=== PATIENT | female | born 1995 | race Caucasian/White ===

== ENCOUNTER 2018-01-19 07:10 | Outpatient (CLI) | payer OTHER | END 2018-01-19 07:11 | disposition home or self-care (01) | LOC: LAB.F 07:10 | PROVIDERS: ATTEND Registered Nurse | DX: Z34.81 Encounter for supervision of other normal pregnancy, first trimester (principal) | CPT/HCPCS: 36415; 84702 ==

== ENCOUNTER 2018-01-25 07:59 | Emergency (ER) | payer OTHER ==
--- NOTE | 2018-01-25 08:22 | ED Physician Documentation ---
History of Present Illness - Stated complaint Stated Complaint: DIZZY/SOA 6 WKS PREG - Chief complaint Chief Complaint: Resp - History obtained from History obtained from: Patient - History of Present Illness Timing: Yesterday Pain level max: 0 Pain level now: 0 Improved by: lying down Worsened by: standing up - Additonal information Additional information: , approx 6 weeks EGA. Feels lightheaded with standing over the past 24 hours. No syncope. No abd pain, chest pain, dyspnea. [place] nauseated yesterday. Is on vitamins. no vaginal bleeding. Review of Systems Ten Systems: 10 systems reviewed and negative Constitutional: denies: Fever, Chills Ears: denies: Ear pain Nose: denies: Rhinorrhea / runny nose, Congestion Throat: denies: Sore throat Respiratory: denies: Cough GI: denies: Nausea, Vomiting, Diarrhea Skin: denies: Rash Musculoskeletal: denies: Neck pain, Back pain Neurologic: denies: Headache PD PAST MEDICAL HISTORY - Past Medical History Past Medical History: No - Past Surgical History Past Surgical History: No - Present Medications Home Medications: Ambulatory Orders Medication Instructions Recorded Confirmed Cephalexin [Keflex] 500 mg PO Q6H #20 capsule 01/25/18 Pnv No.122/Iron/Folic Acid 01/25/18 [ Multi Tablet] - Allergies Allergies/Adverse Reactions: Allergies Allergy/AdvReac Type Severity Reaction Status Date / Time No Known Drug Allergies Allergy Verified 01/25/18 08:11 - Living Situation Living Situation: reports: With family Living Arrangement: reports: At home - Social History Does the pt smoke?: No Does the pt drink ETOH?: No Does the pt have substance abuse?: No - Family History Family history: reports: Non contributory PD ED PE NORMAL - Vitals Vital signs reviewed: Yes - General General: Alert and oriented X 3, No acute distress - HEENT HEENT: PERRL, Ears normal, Other (dry lips) - Neck Neck: Supple, no meningeal sign - Cardiac Cardiac: RRR, Strong equal pulses - Respiratory Respiratory: No respiratory distress, Clear bilaterally - Abdomen Abdomen: Soft, Non tender, Non distended - Derm Derm: Warm and dry - Neuro Neuro: Alert and oriented X 3 - Psych Psych: Normal mood, Normal affect Results - Vitals Vitals: Vital Signs - 24 hr 01/25/18 01/25/1801/25/18 08:10 09:00 09:30 Temperature 36.7 C Heart Rate 88 70 70 Respiratory 14 16 16 Rate Blood Pressure 121/84 H 109/69 108/61 O2 Saturation 100 99 100 01/25/18 09:48 Temperature 36.6 C Heart Rate 74 Respiratory 16 Rate Blood Pressure 108/61 O2 Saturation 100 Oxygen O2 Source Room air - EKG (time done) 0842 Rate: Rate (enter#) (78) Rhythm: NSR Intervals: Normal DE QRS: Normal Ischemia: Normal ST segments - Labs Labs: Laboratory Tests 01/25/18 01/25/18 01/25/18 08:48 08:48 09:00 WBC 4.5 L RBC 4.92 Hgb 14.3 Hct 41.7 MCV 84.9 MCH 29.2 MCHC 34.4 RDW 13.3 Plt Count 162 MPV 6.5 L Neut # 3.4 Lymph # 0.7 L Douglas # 0.4 Eos # 0.0 Baso # 0.0 Absolute Nucleated RBC 0.00 Nucleated RBC % 0.0 Sodium 131 L Potassium 3.7 Chloride 101 Carbon Dioxide 22 Anion Gap 8.0 BUN 7 Creatinine 0.7 Estimated GFR (MDRD) 103 Glucose 97 Calcium 9.0 Phosphorus 2.2 L Magnesium 2.0 Total Bilirubin 0.4 AST 35 ALT 28 Alkaline Phosphatase 48 Total Protein 7.0 Albumin 3.9 Globulin 3.1 Albumin/Globulin Ratio 1.3 Lipase 22 Urine Color YELLOW Urine Clarity HAZY Urine pH 7.0 Ur Specific [place] <=1.005 Urine Protein NEGATIVE Urine Glucose (UA) NEGATIVE Urine Ketones TRACE Urine Occult Blood SMALL H Urine Nitrite NEGATIVE Urine Bilirubin NEGATIVE Urine Urobilinogen 0.2 (NORMAL) Ur Leukocyte Esterase MODERATE H Urine RBC 0-5 Urine WBC 6-10 H Ur Squamous Epith Cells FEW Squamous Urine Bacteria Few Ur Microscopic Review INDICATED Urine Culture Comments INDICATED PD MEDICAL DECISION MAKING - ED course Complexity details: reviewed results, re-evaluated patient, considered differential, d/w patient ED course: Bedside US with IUP, GS 5w6d, CRL 6w1d. Patient feels much better after IV fluids. Is no longer lightheaded or dizzy with standing. No tunnel vision. Appears to be consistent with dehydration. Also will treat for UTI as she has asymptomatic bacteriuria and is . Patient counseled regarding signs and symptoms for which I believe and urgent re -evaluation would be necessary. Patient with good understanding of and agreement to plan and is comfortable going home at this time This document was made in part using voice recognition software. While efforts are made to proofread this document, sound alike and grammatical errors may occur. Departure - Departure Disposition: 01 Home, Self Care Clinical Impression: Dehydration, Hyponatremia Qualifiers: Weeks of gestation: less than 8 weeks Qualified Code(s): Z3A.01 - Less than 8 weeks gestation of UTI (urinary tract infection) Qualifiers: Urinary tract infection type: acute cystitis Hematuria presence: without hematuria Qualified Code(s): N30.00 - Acute cystitis without hematuria Condition: Good Instructions: ED Dehydration, ED UTI Cystitis Female Follow-Up: Esther East PA [Primary Care Provider] - Within 1 week Prescriptions: Cephalexin [Keflex] 500 mg PO Q6H #20 capsule Comments: Drink plenty of fluids. Return if you worsen. Take all antibiotics until gone. Discharge Date/Time: 01/25/18 09:51
[2018-01-25] MEDS ORDERED: SODIUM CHLORIDE 0.9% 1,000 ML IV ONE (08:25)
[2018-01-25 09:06] LABS: BASOPHILS % (AUTO) 0.5 %; EOSINOPHILS % (AUTO) 0.3 %; HGB - HEMOGLOBIN 14.3 g/dL (12.0-16.0); LYMPHOCYTES # (AUTO) 0.7 10^3/uL (1.5-3.5); MEAN CORPUSCULAR HEMOGLOBIN 29.2 pg (27.0-31.0); MEAN CORPUSCULAR HGB CONC 34.4 g/dL (32.0-36.0); MEAN CORPUSCULAR VOLUME 84.9 fL (81.0-99.0); MEAN PLATELET VOLUME 6.5 fL (7.9-10.8); MONOCYTES # (AUTO) 0.4 10^3/uL (0.0-1.0); MONOCYTES % (AUTO) 8.3 %; NEUTROPHILS # (AUTO) 3.4 10^3/uL (1.5-6.6); NEUTROPHILS % (AUTO) 74.9 %; PLT - PLATELET COUNT 162 10^3/uL (130-450); RED BLOOD COUNT 4.92 10^6/uL (4.20-5.40); RED CELL DISTRIBUTION WIDTH 13.3 % (12.0-15.0); WHITE BLOOD COUNT 4.5 x10^3/uL (4.8-10.8)
[2018-01-25 09:07] LABS: BILIRUBIN,URINE NEGATIVE (NEGATIVE); GLUCOSE, URINE (UA) NEGATIVE (NEGATIVE); KETONES,URINE (UA) TRACE mg/dL (NEGATIVE); LEUKOCYTE ESTERASE, URINE MODERATE (NEGATIVE); NITRITE,URINE NEGATIVE (NEGATIVE); OCCULT BLOOD,URINE SMALL (NEGATIVE); PROTEIN,URINE NEGATIVE (NEGATIVE); UROBILINOGEN,URINE 0.2 (NORMAL) E.U./dL (NORMAL)
[2018-01-25 09:12] LABS: CLARITY,URINE HAZY (CLEAR)
[2018-01-25 09:18] LABS: ALBUMIN 3.9 g/dL (3.2-5.5); ALBUMIN/GLOBULIN RATIO 1.3 (1.0-2.2); BILIRUBIN,TOTAL 0.4 mg/dL (0.2-1.0); CREATININE 0.7 mg/dL (0.4-1.0); PHOSPHORUS 2.2 mg/dL (2.5-4.6)
[2018-01-25 09:20] LABS: BACTERIA,URINE Few /HPF (None Seen); RBC,URINE 0-5 /HPF (0-5); SQUAMOUS EPITHELIAL CELL,UR FEW Squamous (<= Few)
[2018-01-25 09:47] VITALS: BP 108/61
== END 2018-01-25 09:51 | disposition home or self-care (01) ==
LOC: ED 07:59
DX: O99.281 Endocrine, nutritional and metabolic diseases complicating pregnancy, first trimester (principal); E86.0 Dehydration; E87.1 Hypo-osmolality and hyponatremia; O23.11 Infections of bladder in pregnancy, first trimester; Z3A.01 Less than 8 weeks gestation of pregnancy
CPT/HCPCS: 36415; 80053; 81001; 81003; 83690; 83735; 84100; 85025; 87086; 93005; 96360; 99283; 99284

== ENCOUNTER 2018-02-22 07:19 | Outpatient (CLI) | payer MEDICAID ==
[2018-02-22 10:50] LABS: BILIRUBIN,URINE NEGATIVE (NEGATIVE); GLUCOSE, URINE (UA) NEGATIVE (NEGATIVE); KETONES,URINE (UA) NEGATIVE (NEGATIVE); LEUKOCYTE ESTERASE, URINE NEGATIVE (NEGATIVE); NITRITE,URINE NEGATIVE (NEGATIVE); OCCULT BLOOD,URINE NEGATIVE (NEGATIVE); PH,URINE 6.5 PH (5.0-7.5); PROTEIN,URINE NEGATIVE (NEGATIVE); UROBILINOGEN,URINE 0.2 (NORMAL) E.U./dL (NORMAL)
[2018-02-22 10:51] LABS: CLARITY,URINE CLEAR (CLEAR)
[2018-02-22 10:54] LABS: BASOPHILS % (AUTO) 0.4 %; EOSINOPHILS # (AUTO) 0.1 10^3/uL (0.0-0.7); EOSINOPHILS % (AUTO) 1.8 %; HGB - HEMOGLOBIN 13.1 g/dL (12.0-16.0); LYMPHOCYTES # (AUTO) 2.5 10^3/uL (1.5-3.5); LYMPHOCYTES % (AUTO) 30.5 %; MEAN CORPUSCULAR HGB CONC 33.5 g/dL (32.0-36.0); MEAN CORPUSCULAR VOLUME 86.4 fL (81.0-99.0); MEAN PLATELET VOLUME 7.1 fL (7.9-10.8); MONOCYTES # (AUTO) 0.6 10^3/uL (0.0-1.0); MONOCYTES % (AUTO) 7.1 %; NEUTROPHILS % (AUTO) 60.2 %; PLT - PLATELET COUNT 203 10^3/uL (130-450); RED BLOOD COUNT 4.52 10^6/uL (4.20-5.40); WHITE BLOOD COUNT 8.3 x10^3/uL (4.8-10.8)
[2018-02-22 10:57] LABS: BACTERIA,URINE None Seen /HPF (None Seen); RBC,URINE None Seen /HPF (0-5); SQUAMOUS EPITHELIAL CELL,UR NONE SEEN (<= Few)
[2018-02-23 14:16] LABS: HEPATITIS C ANTIBODY NON-REACTIVE (NON-REACTIVE)
[2018-02-23 14:16] LABS: HEPATITIS B SURFACE ANTIGEN NON-REACTIVE (NON-REACTIVE)
[2018-02-23 15:05] LABS: HIV AG/AB 4TH GEN NON-REACTIVE (NON-REACTIVE)
== END 2018-02-22 07:20 | disposition home or self-care (01) ==
LOC: LAB.F 07:19
PROVIDERS: ATTEND Nurse Practitioner Obstetrics & Gynecology
DX: Z36.9 Encounter for antenatal screening, unspecified (principal)
CPT/HCPCS: 36415; 81001; 81599; 85025; 86592; 86762; 86803; 86850; 86900; 86901; 87340; 87389

== ENCOUNTER 2018-02-27 14:14 | Outpatient (CLI) | payer SELFPAY | END 2018-02-27 14:15 | disposition home or self-care (01) | LOC: LAB 14:14 | PROVIDERS: ATTEND Nurse Practitioner Obstetrics & Gynecology | DX: Z13.79 Encounter for other screening for genetic and chromosomal anomalies (principal) | CPT/HCPCS: 36415 ==

== ENCOUNTER 2018-05-03 07:29 | Outpatient (CLI) | payer MEDICAID ==
--- NOTE | 2018-05-04 10:25 | Ultrasound Report ---
Procedure Date: 05/03/2018 Accession Number: [id number] / [id number] Procedure: US - OB Detailed Eval CPT Code: FULL RESULT: EXAM: OB Detailed Eval DATE: 05/03/2018 9:53 AM CLINICAL INDICATION: anatomy TECHNIQUE: Real-time scanning was performed with ocean import representative static images obtained. COMPARISON: None LAST MENSTRUAL PERIOD: Unknown US Age: 19 weeks 4 days EFW Hadlock: 291 grams Heart Rate: 148 bpm US EDC: 09/23/2018 BPD Hadlock: 19 weeks 5 days; Mean mm 45 HC Hadlock: 19 weeks 4 days; Mean mm 169 AC Hadlock: 19 weeks 2 days; Mean mm 139 FL Hadlock: 19 weeks 4 days; Mean mm 31 Presentation: Vertex Placental Location: Posterior Cervical Length: 3.3 cm Amniotic Fluid: JESS Subjectively Normal; MVP 4.7 cm FINDINGS: There is a single viable intrauterine gestation, in vertex presentation. heart rate is 148 BPM. The placenta is posterior, without evidence of previa. Amniotic fluid volume is subjectively normal, with a deepest pocket of 4.7 cm. The placenta demonstrates a marginal cord origin. The following anatomic structures were visualized and appear normal: The intracranial contents, including the ventricles and posterior fossa; the lips and orbits; the spine; the heart, including 4 chamber view and outflow tracts, and diaphragm; the abdominal contents, including the stomach, the bilateral kidneys, and urinary bladder, as well as a normal 3-vessel cord insertion; 4 limbs. IMPRESSION: Single viable intrauterine gestation, measuring 19 weeks 4 days by size. Normal anatomic survey. Marginal placental cord origin, which can be associated with growth restriction. Recommend follow-up ultrasound for growth assessment and to re-evaluate cord origin at 28-32 weeks gestational age.
== END 2018-05-03 07:30 | disposition home or self-care (01) ==
LOC: DI 07:29
PROVIDERS: ATTEND Nurse Practitioner Obstetrics & Gynecology
DX: Z36.9 Encounter for antenatal screening, unspecified (principal)
CPT/HCPCS: 76811

== ENCOUNTER 2018-06-28 07:21 | Outpatient (CLI) | payer MEDICAID ==
[2018-06-28 10:57] LABS: HGB - HEMOGLOBIN 12.1 g/dL (12.0-16.0); MEAN CORPUSCULAR HEMOGLOBIN 29.5 pg (27.0-31.0); MEAN CORPUSCULAR HGB CONC 33.7 g/dL (32.0-36.0); MEAN CORPUSCULAR VOLUME 87.4 fL (81.0-99.0); MEAN PLATELET VOLUME 6.5 fL (7.9-10.8); RED BLOOD COUNT 4.11 10^6/uL (4.20-5.40); RED CELL DISTRIBUTION WIDTH 13.8 % (12.0-15.0)
== END 2018-06-28 07:22 | disposition home or self-care (01) ==
LOC: LAB.F 07:21
PROVIDERS: ATTEND Nurse Practitioner Obstetrics & Gynecology
DX: Z36.9 Encounter for antenatal screening, unspecified (principal)
CPT/HCPCS: 36415; 82950; 85027; 86850

== ENCOUNTER 2018-08-10 12:55 | Outpatient (CLI) | payer MEDICAID ==
--- NOTE | 2018-08-11 17:45 | Ultrasound Report ---
Reason: ENCTR FOR SCREENING FOR GROWTH Procedure Date: 08/10/2018 Accession Number: [id number] / [id number] Procedure: US - OB F/U or Repeat CPT Code: FULL RESULT: EXAM: COMPLETE OBSTETRICAL ULTRASOUND EXAM DATE: 08/10/2018 02:25 PM. CLINICAL HISTORY: anatomic survey. COMPARISON: 05/03/2018 9:51 AM. TECHNIQUE: Real-time sonographic evaluation of the fetus performed by the placement specialist. Multiple retail service representative static images were saved for review. DATING: Established EGA 33 weeks and 5 days with RODOLFO 09/23/2018 based on the original ultrasound. EGA 31 weeks/4 days with RODOLFO 10/08/2018 based on the current ultrasound. GENERAL EVALUATION [place] . Cardiac activity: 154 bpm. movement: Visualized. Presentation: Cephalic. Placenta: Cephalic position. No evidence for previa. Umbilical cord: The cord origin could not be adequately visualized due to crowding. Amniotic fluid: Subjectively normal. MVP 3.8 cm. BIOMETRY Bi-Parietal Diameter (BPD): 7.8 cm, 31 weeks/3 days Head Circumference (HC): 28.6 cm, 31 weeks/2 days Abdominal Circumference (AC): 27.2 cm, 32 weeks/4 days Femur Length (FL): 6.3 cm, 32 weeks/4 days Estimated Weight: 1828 gm, this weight is below the 10th percentile for 33 weeks 5 days when utilizing the Hadlock chart from 1990. MATERNAL STRUCTURES Uterus: Unremarkable. Cervix: Long and closed. Transabdominal length 3.8 cm. No free fluid is seen. IMPRESSION: 1. Bolden live intrauterine with gestational age 33 weeks 5 days based on the ultrasound dated 05/03/2018. 2. Estimated weight is below the 10th percentile based on the assigned dating from the Kay ultrasound. RADIA
== END 2018-08-10 12:56 | disposition home or self-care (01) ==
LOC: DI 12:55
PROVIDERS: ATTEND Nurse Practitioner Obstetrics & Gynecology
DX: Z36.4 Encounter for antenatal screening for fetal growth retardation (principal)
CPT/HCPCS: 76816

== ENCOUNTER 2018-08-12 10:56 | Outpatient (CLI) | payer MEDICAID ==
[2018-08-12 11:10] VITALS: BP 114/67
--- NOTE | 2018-08-12 14:28 | Ultrasound Report ---
Reason: size less than dates, growth dropping off. Procedure Date: 08/12/2018 Accession Number: [id number] / [id number] Procedure: US - OB Bio w/Non Stress CPT Code: FULL RESULT: EXAM: BIOPHYSICAL PROFILE EXAM DATE: 08/12/2018 12:43 PM. CLINICAL HISTORY: Size less than dates, growth dropping off. COMPARISON: Obstetric ultrasound 08/10/2018 and 05/03/2018. TECHNIQUE: Real-time sonographic evaluation of the fetus performed by the hot saw helper. Multiple insurance claim representative static images were saved for review. DATING: Established EGA 34 weeks 0 days with RODOLFO 09/23/2018 based on the original ultrasound. GENERAL EVALUATION [place] . Cardiac activity: 146 bpm. movement: Visualized. Presentation: Cephalic. Placenta: Posterior position. No perigestational bleed. Amniotic fluid: Normal. JESS 9.7 cm. MVP 3.2 cm. BIOPHYSICAL PROFILE Breathing = 2 Movement = 2 Tone = 2 Amniotic Fluid = 2 Total 8/8 Umbilical Artery S/D Ratio (mid vessel): 2.81 IMPRESSION: 1. Bold[place] live intrauterine with gestational age 34 weeks 0 days based on established RODOLFO. 2. Biophysical profile score 8 of 8. 3. Normal amniotic fluid volume. 4. Normal umbilical artery doppler of 2.81. According to the [place] Journal of Obstetrics and Gynecology, the 50th percentile is 2.52 and the 95th percentile for 34 weeks is 3.58 (AJOG 2005, "Reference ranges for serial measurements of umbilical artery Doppler indices in the second half of "; [phone]). RADIA
== END 2018-08-12 14:40 | disposition home or self-care (01) ==
LOC: WFO 10:56 → FBP 11:09 → WFO 14:40
PROVIDERS: ATTEND Nurse Practitioner Obstetrics & Gynecology
DX: O26.893 Other specified pregnancy related conditions, third trimester (principal); Z3A.34 34 weeks gestation of pregnancy
CPT/HCPCS: 59025; 76818

== ENCOUNTER 2018-08-29 12:16 | Outpatient (CLI) | payer MEDICAID | END 2018-08-29 12:17 | disposition home or self-care (01) | LOC: LAB.R 12:16 | PROVIDERS: ATTEND Nurse Practitioner Obstetrics & Gynecology | DX: Z36.85 Encounter for antenatal screening for Streptococcus B (principal); Z11.3 Encounter for screening for infections with a predominantly sexual mode of transmission | CPT/HCPCS: 87081; 87491; 87591 ==

== ENCOUNTER 2018-08-29 12:25 | Outpatient (CLI) | payer MEDICAID ==
[2018-08-29 12:41] VITALS: BP 105/66
--- NOTE | 2018-08-29 15:53 | Ultrasound Report ---
Reason: for growth Procedure Date: 08/29/2018 Accession Number: [id number] / [id number] Procedure: US - OB F/U or Repeat CPT Code: FULL RESULT: EXAM: BIOPHYSICAL PROFILE. FOLLOW-UP OBSTETRICAL ULTRASOUND. EXAM DATE: 08/29/2018 02:18 PM. CLINICAL HISTORY: For growth. COMPARISON: OB follow up or repeat 08/10/2018 1:41 PM. TECHNIQUE: Real-time sonographic evaluation of the fetus performed by the utilization manager. Multiple inside sales representative static images were saved for review. TECHNIQUE: Real-time sonographic evaluation of the fetus performed by the utilization manager. Multiple inside sales representative static images were saved for review. DATING: Established EGA 36 weeks 3 days with RODOLFO 09/23/2018. GENERAL EVALUATION Bold[place] . Cardiac activity: 143 bpm. movement: Visualized. Presentation: Cephalic. Placenta: Posterior position. No evidence for previa or abruption. Amniotic fluid: Normal. JESS 13.7 cm. MVP 5.1 cm. BIOPHYSICAL PROFILE Breathing = 0 Movement = 2 Tone = 2 Amniotic Fluid = 2 Total 04/28 BIOMETRY Bi-Parietal Diameter (BPD): 8.2 cm, 33 weeks 0 days. Head Circumference (HC): 30.8 cm, 34 weeks 2 days. Abdominal Circumference (AC): 30.4 cm, 34 weeks 3 days. Femur Length (FL): 6.8 cm, 35 weeks 1 day. Estimated Weight: 2443 gm, 15.1 percentile for weeks/days. IMPRESSION: 1. Bold[place] live intrauterine with gestational age 36 weeks and 3 days based on previously established dates. 2. Biophysical profile score 6 of 8. 3. The estimated weight is now above the 10th percentile and this fetus no longer meets criteria for IUGR symmetric or asymmetric. RADIA
--- NOTE | 2018-08-29 15:53 | Ultrasound Report ---
Reason: small for dates Procedure Date: 08/29/2018 Accession Number: [id number] / [id number] Procedure: US - OB Biophysical Profile CPT Code: FULL RESULT: EXAM: BIOPHYSICAL PROFILE. FOLLOW-UP OBSTETRICAL ULTRASOUND. EXAM DATE: 08/29/2018 02:18 PM. CLINICAL HISTORY: For growth. COMPARISON: OB follow up or repeat 08/10/2018 1:41 PM. TECHNIQUE: Real-time sonographic evaluation of the fetus performed by the conflict resolution professional. Multiple claims service representative static images were saved for review. TECHNIQUE: Real-time sonographic evaluation of the fetus performed by the conflict resolution professional. Multiple claims service representative static images were saved for review. DATING: Established EGA 36 weeks 3 days with RODOLFO 09/23/2018. GENERAL EVALUATION Bold[place] . Cardiac activity: 143 bpm. movement: Visualized. Presentation: Cephalic. Placenta: Posterior position. No evidence for previa or abruption. Amniotic fluid: Normal. JESS 13.7 cm. MVP 5.1 cm. BIOPHYSICAL PROFILE Breathing = 0 Movement = 2 Tone = 2 Amniotic Fluid = 2 Total 04/28 BIOMETRY Bi-Parietal Diameter (BPD): 8.2 cm, 33 weeks 0 days. Head Circumference (HC): 30.8 cm, 34 weeks 2 days. Abdominal Circumference (AC): 30.4 cm, 34 weeks 3 days. Femur Length (FL): 6.8 cm, 35 weeks 1 day. Estimated Weight: 2443 gm, 15.1 percentile for weeks/days. IMPRESSION: 1. Bolden live intrauterine with gestational age 36 weeks and 3 days based on previously established dates. 2. Biophysical profile score 6 of 8. 3. The estimated weight is now above the 10th percentile and this fetus no longer meets criteria for IUGR symmetric or asymmetric. RADIA
== END 2018-08-29 15:05 | disposition home or self-care (01) ==
LOC: WFO 12:25 → FBP 12:27 → WFO 15:05
PROVIDERS: ATTEND Registered Nurse
DX: O36.5930 Maternal care for other known or suspected poor fetal growth, third trimester, not applicable or unspecified (principal); Z3A.36 36 weeks gestation of pregnancy; Z36.85 Encounter for antenatal screening for Streptococcus B; Z11.3 Encounter for screening for infections with a predominantly sexual mode of transmission
CPT/HCPCS: 59025; 76816; 76819; 87081; 87491; 87591

== ENCOUNTER 2018-08-31 15:36 | Outpatient (CLI) | payer MEDICAID ==
[2018-08-31 15:56] VITALS: BP 109/61
== END 2018-08-31 17:06 | disposition home or self-care (01) ==
LOC: WFO 15:36 → FBP 15:38 → WFO 17:06
PROVIDERS: ATTEND Nurse Practitioner Obstetrics & Gynecology
DX: O36.5930 Maternal care for other known or suspected poor fetal growth, third trimester, not applicable or unspecified (principal); Z3A.36 36 weeks gestation of pregnancy
CPT/HCPCS: 59025

== ENCOUNTER 2018-09-05 10:12 | Outpatient (CLI) | payer MEDICAID ==
[2018-09-06 13:46] LABS: HIV AG/AB 4TH GEN NON-REACTIVE (NON-REACTIVE)
[2018-09-06 13:49] LABS: HEPATITIS C ANTIBODY NON-REACTIVE (NON-REACTIVE)
[2018-09-07 13:06] LABS: HSV 1 IGG TYPE SPECIFIC AB <0.90 index; HSV 2 IGG TYPE SPECIFIC AB <0.90 index
== END 2018-09-05 10:13 | disposition home or self-care (01) ==
LOC: LAB.F 10:12
PROVIDERS: ATTEND Nurse Practitioner Obstetrics & Gynecology
DX: Z11.3 Encounter for screening for infections with a predominantly sexual mode of transmission (principal)
CPT/HCPCS: 36415; 81599; 86695; 86696; 86803; 87389

== ENCOUNTER 2018-09-05 16:17 | Outpatient (CLI) | payer MEDICAID ==
[2018-09-05 16:45] VITALS: BP 98/82
--- NOTE | 2018-09-06 02:22 | Ultrasound Report ---
Reason: MATERN CARE FOR OTHER OR SUSP POOR GETL Procedure Date: 09/05/2018 Accession Number: [id number] / [id number] Procedure: US - OB Bio w/Non Stress CPT Code: FULL RESULT: EXAM: BIOPHYSICAL PROFILE EXAM DATE: 09/05/2018 05:39 PM. CLINICAL HISTORY: Maternal care for other or suspected poor growth. COMPARISON: OB BIO W/NON STRESS 08/12/2018 12:43 PM. TECHNIQUE: Real-time sonographic evaluation of the fetus performed by the occupational health nursing director. Multiple hospital sales representative static images were saved for review. DATING: Established EGA 36 weeks 3 days with RODOLFO 09/23/2018. GENERAL EVALUATION Bold[place] . Cardiac activity: 146 bpm. movement: Visualized. Presentation: Cephalic. Placenta: Posterior position. No evidence for previa or abruption. Amniotic fluid: Normal. JESS 10.5 cm. MVP 3.7 cm. BIOPHYSICAL PROFILE Breathing = 2 Movement = 2 Tone = 2 Amniotic Fluid = 2 Total 06/28 IMPRESSION: 1. Bolden live intrauterine with gestational age 36 weeks 3 days based on established RODOLFO. 2. Biophysical profile score 8 of 8. CINDY
--- NOTE | 2018-09-06 23:47 | Labor Flowsheet ---
Labor Flowsheet Datetime Report Generated by CPN: 09/06/2018 23:47 Datetime: 09/06/2018 21:31 VITAL SIGNS NBP Sys/Luz Maria/Mean (mmHg): 109 : 66 : 76 Pulse: 79 Datetime: 09/06/2018 20:40 SpO2 (%): 98
== END 2018-09-05 16:56 | disposition home or self-care (01) ==
LOC: DI 16:17 → FBP 16:37 → DI 16:56
PROVIDERS: ATTEND Registered Nurse
DX: O36.5930 Maternal care for other known or suspected poor fetal growth, third trimester, not applicable or unspecified (principal); Z11.3 Encounter for screening for infections with a predominantly sexual mode of transmission
CPT/HCPCS: 36415; 59025; 76818; 81599; 86695; 86696; 86803; 87389

== ENCOUNTER 2018-09-15 00:29 | Inpatient (IN) | payer OTHER, MEDICAID ==
[2018-09-15 01:03] LABS: BILIRUBIN,URINE NEGATIVE (NEGATIVE); GLUCOSE, URINE (UA) NEGATIVE (NEGATIVE); KETONES,URINE (UA) NEGATIVE (NEGATIVE); LEUKOCYTE ESTERASE, URINE SMALL (NEGATIVE); NITRITE,URINE NEGATIVE (NEGATIVE); OCCULT BLOOD,URINE NEGATIVE (NEGATIVE); PH,URINE 7.5 PH (5.0-7.5); PROTEIN,URINE NEGATIVE (NEGATIVE); UROBILINOGEN,URINE 0.2 (NORMAL) E.U./dL (NORMAL)
[2018-09-15] MEDS ORDERED: SODIUM CHLORIDE FLUSH 0.9% 10 ML SYRINGE IVP PRN (01:03)
[2018-09-15 01:11] LABS: BACTERIA,URINE Few /HPF (None Seen); CLARITY,URINE CLEAR (CLEAR); RBC,URINE 0-5 /HPF (0-5); SQUAMOUS EPITHELIAL CELL,UR MOD Squamous (<= Few)
[2018-09-15] MEDS: SODIUM CHLORIDE FLUSH 0.9% 10 ML SYRINGE IVP SCH ×2 (01:43→18:59)
[2018-09-15 01:48] LABS: BASOPHILS % (AUTO) 0.2 %; EOSINOPHILS # (AUTO) 0.1 10^3/uL (0.0-0.7); EOSINOPHILS % (AUTO) 0.7 %; HGB - HEMOGLOBIN 11.9 g/dL (12.0-16.0); LYMPHOCYTES # (AUTO) 2.9 10^3/uL (1.5-3.5); LYMPHOCYTES % (AUTO) 18.2 %; MEAN CORPUSCULAR HEMOGLOBIN 28.4 pg (27.0-31.0); MEAN CORPUSCULAR HGB CONC 34.3 g/dL (32.0-36.0); MEAN CORPUSCULAR VOLUME 82.7 fL (81.0-99.0); MONOCYTES % (AUTO) 6.1 %; NEUTROPHILS # (AUTO) 11.8 10^3/uL (1.5-6.6); NEUTROPHILS % (AUTO) 74.8 %; PLT - PLATELET COUNT 304 10^3/uL (130-450); WHITE BLOOD COUNT 15.7 x10^3/uL (4.8-10.8)
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
--- NOTE | 2018-09-15 04:05 | PROVIDER PROGRESS NOTE ---
Labor Progress Note - Uterine Monitoring Uterine Monitoring Mode: positive: External toco Contraction Frequency (min/apart): 1.5-4 Contraction Intensity: positive: Moderate Uterine Resting Tone: positive: Soft - Monitoring Monitor Mode: positive: External ultrasound Heart Rate Baseline: 150 Heart Rate Variability: positive: Moderate (6-25 bmp) Accelerations: positive: Present, 15x15 Decelerations: positive: None Strip Review: positive: Category I - Labor Progress Note Labor Progress Note/Additional Text: S: Breathing through contractions. Feels fatigued but otherwise feels she is coping well. Desires to get into the jacuzzi. Reports +FM. Denies VB or Lof. FOB Cruz and mother Siomara supportive in the room. O: FHR baseline 150s, moderate variability, + accels, no decels Contractions palpate moderate every 1.5-4 minutes lasting 50-80 seconds with soft resting tone SVE deferred BP 108/78, HR 86, T 36.7 A: 23yo @ 38.5wks gestation by L=8.3wk U/S Spontaneous, active labor Constitutional SGA per MFM vs IUGR GBS negative FHR category I P: Continue expectant management Continuous monitoring Encouraged ambulation and position changes Jacuzzi and N2O per patient request Epidural per pt request SVE deferred - repeat as clinically indicated Anticipate spontaneous vaginal delivery
[2018-09-15] MEDS ORDERED: CALCIUM CARBONATE CHEW 500 MG TABLET PO PRN ×2 (04:06→04:15)
[2018-09-15] MEDS: LACTATED RINGERS 1,000 ML IV SCH ×3 (04:20→10:28)
[2018-09-15] MEDS ORDERED: METOCLOPRAMIDE 10 MG/2 ML VIAL IVP PRN ×2 (05:19→07:37)
[2018-09-15] MEDS ORDERED: fent/BUPIV 2 MCG/0.125% 250 ML EP ONE (06:34)
[2018-09-15] MEDS ORDERED: OXYTOCIN/SODIUM CHLORIDE 500 ML IV ONE (07:14)
[2018-09-15] MEDS ORDERED: ePHEDrine 50 MG/ML VIAL IVP ONE (07:20)
--- NOTE | 2018-09-15 07:26 | PROVIDER PROGRESS NOTE ---
Labor Progress Note - Uterine Monitoring Uterine Monitoring Mode: positive: External toco Contraction Frequency (min/apart): 2-7 Contraction Intensity: positive: Moderate to strong Uterine Resting Tone: positive: Soft - Monitoring Monitor Mode: positive: External ultrasound Heart Rate Baseline: 140 Heart Rate Variability: positive: Moderate (6-25 bmp) Accelerations: positive: Present, 15x15 Decelerations: positive: Variable, Intermittent (<50% x20 min) Strip Review: positive: Category I - Vaginal Exam Dilation (in cm): 8 Effacement (%): 100 Station: 0 Cervical Position: Anterior - Labor Progress Note Labor Progress Note/Additional Text: S: Pt laying in bed on right side breathing through contractions. Beginning to experience some relief with placement of epidural. Prior to placement was feeling pressure in her bottom at the peak of the contraction. She is fatigued after a long night of labor and is hoping to be able to sleep for a short while prior to second stage. FOB and mom supportive at the bedside. O: Episode of hypotension noted following bolus dosage. Pt unaffected and asymtomatic. Ephedrine administered and BP improved. BP 117/82, HR 83 SVE 8/100/0, vertex. Contractions palpate strong every 2-7 minutes lasting 60-90 seconds with soft resting tone. difficult to trace while patient sitting up for epidural. Intermittent auscultation during that time reassuring. Currently FHR baseline 140s, moderate variability, + accels, occasional variable decelerations. A: 23yo @ 38.5wks gestation by L=8.3wk U/S MFM diagnosis "Constitutional SGA" vs IUGR GBS neg FHR category I BOW intact P: Continue expectant management Epidural for pain management per maternal request Anticipate spontaneous vaginal delivery
[2018-09-15] MEDS ORDERED: ONDANSETRON 4 MG/2 ML VIAL IVP PRN (07:37)
[2018-09-15] MEDS ORDERED: diphenhydrAMINE INJ 50 MG/ML VIAL IVP PRN (07:37)
[2018-09-15] MEDS ORDERED: LACTATED RINGERS 500 ML IV ONE (07:37)
[2018-09-15] MEDS ORDERED: NALOXONE 0.4 MG/ML VIAL IVP PRN (07:37)
[2018-09-15] MEDS ORDERED: ePHEDrine 50 MG/ML VIAL IVP PRN (07:37)
[2018-09-15] MEDS ORDERED: NALBUPHINE 10 MG/ML AMP IVP PRN (07:37)
--- NOTE | 2018-09-15 09:00 | PROVIDER PROGRESS NOTE ---
Labor Progress Note - Uterine Monitoring Uterine Monitoring Mode: positive: External toco Contraction Frequency (min/apart): 2-5 Contraction Intensity: positive: Strong Uterine Resting Tone: positive: Soft - Monitoring Heart Rate Baseline: 150 Heart Rate Variability: positive: Moderate (6-25 bmp) Accelerations: positive: Present, 15x15 Decelerations: positive: None Strip Review: positive: Category I - Vaginal Exam Dilation (in cm): 8.5 Effacement (%): 100 Station: 1 Cervical Position: Anterior - Labor Progress Note Labor Progress Note/Additional Text: S: Patient feeling increased pressure and discomfort vaginally. Feeling well rested after a short nap. FOB and mom supportive at the bedside. Mood is good. Feeling excited. O: BP 117/69, HR 108 FHR baseline 150s moderate variability, + accels, no decels Contractions palpate firm every 2-5 minutes with soft resting tone. SVE 8-9/100/+1, vertex. AROM small amount of clear fluid. A: 23yo @ 39.5wks gestation by L= 8.3wk U/S MFM diagnosis "constitutional SGA vs IUGR" GBS neg FHR Category I P: Continue expectant management Continuous monitoring Repeat SVE as clinically indicated Anticipate spontaneous vaginal delivery.
[2018-09-15] MEDS ORDERED: WITCH HAZEL/GLYCERIN 1 EACH MED..PAD TOP PRN (12:03)
[2018-09-15] MEDS ORDERED: HYDROCORTISONE/PRAMOXINE 10 GM PR PRN (12:03)
[2018-09-15] MEDS ORDERED: OXYTOCIN/SODIUM CHLORIDE 250 ML IV ONE (12:03)
--- NOTE | 2018-09-15 12:15 | DELIVERY NOTE ---
Delivery Note - Labor Labor: positive: Augmented by ARM - Infant Delivery Method Delivery Method: positive: Spontaneous vaginal delivery - Presentation Presentation: positive: Vertex, MAX - left occiput anterior - Nuchal Cord Nuchal Cord: positive: Present, Reduced - Episiotomy Type Episiotomy Type: positive: None - Laceration Laceration: positive: 1st degree - Suture Suture Type: positive: Chromic Suture Size: positive: 3-0 - Delivery Outcome Delivery Outcome: positive: Livebirth - : positive: Placed in direct skin contact with mother, Bulb syringe, Stimulated, Warmed, Sidney used [place] sex: positive: Male - Cord Cord: positive: 3 vessels - Placenta Placenta: positive: Intact, Spontaneous - Estimated Blood Loss Estimated Blood Loss (in cc): 200 - Post Delivery Events Post Delivery Events: positive: No post delivery events - Delivery Comments (Free Text/Narrative) Delivery Comments (Free Text/Narrative): Labor: This 23yo @ 38.5wks gestation by L=8.3wk U/S presented at 0030 on 09/15/2018 in active labor. Cervix was 5/75/-1 and vertex with intact BOW. FHR pattern demonstrated a 150 baseline with occasional deep variable decelerations with quick return to baseline and maintained moderate variability throughout. Overall reassuring and Category I tracing. Normal labor course. Epidural placed upon maternal request. AROM occurred at approximately 0830 and was noted to be a small amount of clear fluid. Pt progressed to c/c/+2 and pushing at 1114. : Normal of a viable male infant at 1130 on 09/15/2018. Nuchal x 1 reduced. 's 8/8 at 1 and 5 minutes respectively. The was placed on maternal abdomen, stimulated, dried, and placed skin to skin. The umbilical cord was allowed to stop pulsating at which time it was doubly clamped by CNM and cut by FOB. Cord blood was obtained. Placenta delivered spontaneously and intact at 1134. 3VC. Pitocin administered via IV for hemostasis. EBL 200mL. Fourth Stage: Uterine fundus firm and there is no excessive bleeding. The perineum, vagina, and cervix were inspected and found to have first degree perineal laceration which was repaired using a 3-[address]-1 needle in standard fashion under sterile conditions. Vaginal examination following repair was done. Tissue well approximated. initiated. Family bonding well. Both mother and baby were left in stable condition.
[2018-09-15] MEDS: ACETAMINOPHEN 500 MG TABLET PO SCH (13:46)
[2018-09-15] MEDS: IBUPROFEN 800 MG TABLET PO SCH ×2 (13:47→19:51)
[2018-09-16] MEDS: DOCUSATE SODIUM 100 MG CAPSULE PO SCH ×3 (00:12→20:20)
[2018-09-16] MEDS: ACETAMINOPHEN 500 MG TABLET PO SCH ×3 (00:12→18:10)
[2018-09-16] MEDS: IBUPROFEN 800 MG TABLET PO SCH ×4 (05:34→20:19)
--- NOTE | 2018-09-16 09:59 | PROVIDER PROGRESS NOTE ---
Subjective - Subjective Subjective: S: Bonding well with baby. Having some difficulty with and having a hard time getting the baby to feed comfortably. She is dripping colostrum and has been hand expressing or pumping and teaspoon feeding. Baby is vigorous at the breast. Pt feels agitated when infant cries and feels she is unable to calm herself down when the baby reaches a state of increased agitation. Baby is pooping and urinating frequently and wakes to feed independently. Has tight frenulum - is able to extend his tongue beyond his lips. Parents would like baby to be evaluated for frenectomy. Bleeding is decreased and is light. Pain is well controlled with oral medications. O: Admit labs: Hgb 11.9, Hct 34.7, PLT 304 BP 113/65, T36.8, HR 78, RR 16 Heart RRR w/o M/G/R, lungs CTAB, abdomen soft and nontender with fundus firm at U-1. Perineum intact and repair with moderate edema. Light lochia rubra. Bilateral LE's no edema. A: 23yo -->P1 PPD#1 s/p TSVD of viable male 1st degree perineal laceration- intact Generalized anxiety P: Continue routine care and medications. Specific attention to today. I will return to assist with feed per patient need/request. Will evaluate for discharge home tomorrow. They verbalized understanding and agree to above plan. They deny further questions or concerns at this time. Objective - Vital Signs/Intake & Output Vital Signs: Vital Signs x48h Temp Pulse Resp BP Pulse Ox 09/16/18 08:00 36.8 C 78 16 113/65 99 09/16/18 05:40 20 Intake & Output: Intake & Output 09/13/18 09/14/18 09/15/18 09/16/18 23:59 23:59 23:59 23:59 Intake Total 2170.0 Output Total 2350 Balance -180.0 - Lab Results Fish Bones: 09/15/18 01:38
--- NOTE | 2018-09-16 10:00 | PROVIDER PROGRESS NOTE ---
Subjective - Subjective Subjective: ADDENDUM Plan: Initiate zoloft 50mg q day. Will send Rx home with patient upon discharge. Reviewed risks, benefits, and potential side effects with patient and partner. They both feel this would be helpful. Objective - Vital Signs/Intake & Output Vital Signs: Vital Signs x48h Temp Pulse Resp BP Pulse Ox 09/16/18 08:00 36.8 C 78 16 113/65 99 09/16/18 05:40 20 Intake & Output: Intake & Output 09/13/18 09/14/18 09/15/18 09/16/18 23:59 23:59 23:59 23:59 Intake Total 2170.0 Output Total 2350 Balance -180.0 - Lab Results Fish Bones: 09/15/18 01:38
[2018-09-16] MEDS: SERTRALINE 50 MG TABLET PO SCH (14:00)
[2018-09-17] MEDS: ACETAMINOPHEN 500 MG TABLET PO SCH (05:08)
[2018-09-17] MEDS: IBUPROFEN 800 MG TABLET PO SCH (09:23)
--- NOTE | 2018-09-17 10:03 | Discharge Plan ---
Discharge Plan Disposition: 01 Home, Self Care Condition: Good Diet: Regular Activity Restrictions: No Restrictions Shower Restrictions: No Driving Restrictions: No Weight Bearing: Full Weight No Smoking: If you smoke, Please STOP! Call for help. Follow-up with: Lily Hartman CNM, ARNP [Primary Care Provider] -
--- NOTE | 2018-09-17 10:14 | PROVIDER PROGRESS NOTE ---
Subjective - Subjective Subjective: FINAL PROGRESS NOTE: S: Bonding well with baby. Continues to feels somewhat agitated when baby becomes difficult to console per security shift manager OB RN - however, has improved from yesterday. Pt teary and is concerned she is not doing something right since baby is more sleepy this morning than he has been previously. Bleeding decreased and is light. Reports watery stool following colace administration. Mild nausea following administration of sertraline. Pain well controlled with oral medications. O: BP 106/60, HR 66, T 36.9, RR 17 Heart RRR w/o M/G/R, lungs CTAB, abdomen soft, nontender with fundus firm at U- 1. Bilateral LE's no edema. Mood is moderate. Somewhat teary but seems improved significantly from 24 hours ago. Perineum intact and repair with minimal edema. Light lochia rubra. A: 23yo -->P1 PPD#2 s/p TSVD of viable male name Karl First degree perineal laceration - intact Anxiety - 50mg sertraline PO daily initiated yesterday P: Reviewed self care and warning s/sx Plans to f/u at [facility] in 2-3 days for support visit. Advised continuation of PNV while . Encouraged PO ibuprofen OTC for pain management. Pt verbalized understanding and agrees to above plan. She denies further quest ions or concerns at this time. Discharge to boarder mom status. Objective - Vital Signs/Intake & Output Vital Signs: Vital Signs x48h Temp Pulse Resp BP Pulse Ox 09/17/18 07:58 36.9 C 66 17 106/60 99 09/17/18 05:00 36.8 C 66 17 115/70 96 Intake & Output: Intake & Output 09/14/18 09/15/18 09/16/18 09/17/18 23:59 23:59 23:59 23:59 Intake Total 2170.0 Output Total 2350 Balance -180.0 - Lab Results Fish Bones: 09/15/18 01:38
[2018-09-17 12:15] VITALS: BP 110/61
[2018-09-17] MEDS: SERTRALINE 50 MG TABLET PO SCH (13:13)
--- NOTE | 2018-09-17 14:52 | Labor Flowsheet ---
Labor Flowsheet Datetime Report Generated by CPN: 09/17/2018 14:52 Datetime: 09/17/2018 12:11 VITAL SIGNS NBP Sys/Luz Maria/Mean (mmHg): 110 : 61 : 73 Pulse: 68 LaborFlag: Labor Datetime: 09/16/2018 20:05 SpO2 (%): 98 Datetime: 09/15/2018 11:29 UTERINE ACTIVITY Monitor Mode: External Frequency (min): 1-2 Quality: Strong Duration (sec): 40-60 Pattern: Normal: <= 5 Contractions in 10 Minutes Resting Tone (Palpate): Relaxed Contraction Comments: pushing with each ctx FHR Baseline Changes: No Baseline Change Comments: FHT audible in 150s. difficult to assess strip due to maternal tachycardia. also audible decels heard during pushing down to the 90s Stage 2 Comments: 1130 Datetime: 09/15/2018 11:16 ASSESSMENT A Monitor Mode: Telemetry FHR Baseline Rate : 140 Variability: Moderate 6-25 bpm Accelerations: 15X15 Decelerations: None Category: Category I Oxygen Method: Room Air STAGE 2 Pushing: Urge to Push Pushing Position: Pushing with Contractions Pushing Progress: Descent with Pushing Datetime: 09/15/2018 11:12 VAGINAL EXAM Dilatation (cm): 10.0 Effacement (%): 100 Station: 2 Exam by: Lily Devan Cervix, Consistency: Soft Datetime: 09/15/2018 11:11 COMMUNICATION Communication: Provider at Bedside Provider Notified (Name): Lily Devan Datetime: 09/15/2018 10:43 Temperature (C): 36.7 Datetime: 09/15/2018 10:34 Patient Position/Activity: Right Tilt Patient Care Comments: Right tilt with peanut ball Datetime: 09/15/2018 10:32 Vaginal Exam Comments: Rechecked by Shira Jamey Datetime: 09/15/2018 10:05 Monitor Interventions for FHR: Ultrasound Adjusted Datetime: 09/15/2018 09:55 Monitor Interventions for UA: [place] Adjusted Datetime: 09/15/2018 09:36 I/O Interventions: Straight Cath (ml) @ 200 Datetime: 09/15/2018 09:02 Actions for Decelerations: Side to Side Datetime: 09/15/2018 08:32 Respirations: 21 Datetime: 09/15/2018 08:24 Membrane Status: Ruptured Membranes Rupture Method: Artificial Amniotic Fluid Color: Clear Amniotic Fluid Amount: Small Membrane Comments: Ruptured by Lily Devan Datetime: 09/15/2018 07:52 MEDICATIONS Magnesium/Antihypertensives: Ephedrine IV (mg) @ 5 Datetime: 09/15/2018 07:37 Pain Coping: Sleeping Datetime: 09/15/2018 07:14 PATIENT CARE IV/Blood Work: IV Bolus Started Datetime: 09/15/2018 07:13 Epidural Procedure Other: Pump Started Datetime: 09/15/2018 07:07 Anesthesia Comments: bolus dose Datetime: 09/15/2018 07:04 Epidural Procedure: Cath Placed Datetime: 09/15/2018 06:47 PROCEDURE TIME OUT Procedure Verify: Correct Patient Identity; Correct Side and Site are Marked; Accurate Procedure Co nsent Form; Agreement on Procedure to be Done; Correct Patient Position; Safety Precautions Based on Patient History or Medication Use ANESTHESIA Epidural Positioning: Sitting Datetime: 09/15/2018 06:30 Stage of : Labor Notification Reason: Pain Communication Comments: [facility] [employer] called. Pt requesting epidural Datetime: 09/15/2018 05:47 Pain Assessment Comments: Pt using Nitrous oxide at this time Medication Comments: Pt using nitrous oxide at this time Datetime: 09/15/2018 05:30 PAIN Pain Scale: 8 Pain Presence: Intermittent Pain Type: Contraction Pain Location: Abdomen; Back Pain Relief Measures: Comfort Measures Datetime: 09/15/2018 04:21 Vaginal Bleeding: None Oxygen Amount (LPM): 10 Datetime: 09/15/2018 03:50 Comfort Measures: Hot Shower/Tub/Spa Datetime: 09/15/2018 02:24 MATERNAL ASSESSMENT Level of Consciousness: Fully Conscious Headache: Denies Breath Sounds, Left: Clear and Equal Breath Sounds, Right: Clear and Equal Nausea/Vomiting: Denies RUQ Epigastric Pain: Denies
--- NOTE | 2018-09-17 18:49 | DISCHARGE SUMMARY ---
Physician: SUNDAR Jerome DATE OF ADMISSION: 09/15/2018 DATE OF DISCHARGE: 09/17/2018 DIAGNOSIS ON ADMISSION 1. A 23-year-old G1, P0-0-0-0, at 38+5 weeks' gestation. 2. Constitutional SGA versus intrauterine growth restriction (IUGR) per MFM. 3. Group B streptococcus (GBS) negative. DIAGNOSES ON DISCHARGE 1. A 23-year-old G1, P1-0-0-1, day #1, status post term spontaneous vaginal delivery on 09/15/2018. 2. Generalized anxiety. 3. Normal recovery. BRIEF HISTORY: Patient is a patient at [facility] who presented on 09/15/2018 with complaints of contractions. Her cervix was noted to be 5 cm dilated, 75% effaced, and a -1 station in a vertex position with intact bag of razo. heart rate pattern demonstrated a category 1 tracing with intermittent periods of category 2, but overall reassuring. Normal labor course. Epidural placed by maternal request. Patient progressed to deliver a viable male at 11:30 on 09/15/2018. Apgars were 8 and 8 at one and five minutes respectively. EBL 200 mL. The perineum, vagina, and cervix were inspected following delivery and found to have a first-degree perineal laceration, which was repaired using a 3-0 chromic on a CT1 needle in standard fashion in usual conditions. Patient has been doing well in her course, is struggling some with particularly with getting the baby to successfully latch consistently. She has worked closely with myself on multiple occasions and was able to get at least 3 successful sessions for prolonged periods of time. Baby was difficult to wake this morning and appears somewhat fatigued. Dr. Watkins, on-call rn procedures, prefers remain in our care throughout the day today. Dr. Watkins states he will evaluate the for discharge later this evening. Reviewed with patient and her significant other extensively today. Will be discharging the patient home to boarder mom's status. She has otherwise been doing well in her course. She is ambulating and tolerating a regular diet. She is urinating without difficulty. Her lochia is normal. She has been given instructions to call if she has any worsening vaginal bleeding, any fevers, chills, abdominal pain or foul smelling vaginal lochia. She intends to follow up with Roxanna rOozco at [facility] in 2-3 days. She was encouraged to take [id number] Tylenol and ibuprofen for pain management, and encouraged to continue her vitamin while . She is unsure regarding her plan for contraception at this time. Patient and significant other both verbalized understanding and agreed with the above plan. They deny further questions or concerns today. TD: 09/17/2018 10:29 MARCELA
== END 2018-09-17 13:15 | disposition home or self-care (01) | DRG 807 ==
LOC: WFO 00:29 → FBP 00:30 → WFO 00:44 → FBP 00:45
PROVIDERS: ADMIT Nurse Practitioner Obstetrics & Gynecology; ATTEND Nurse Practitioner Obstetrics & Gynecology
PROC: 10E0XZZ Delivery of Products of Conception, External Approach (ICD-10-PCS; principal; 2018-09-15)
PROC: 0HQ9XZZ Repair Perineum Skin, External Approach (ICD-10-PCS; 2018-09-15)
PROC: 10907ZC Drainage of Amniotic Fluid, Therapeutic from Products of Conception, Via Natural or Artificial Opening (ICD-10-PCS; 2018-09-15)
DX: O36.5930 Maternal care for other known or suspected poor fetal growth, third trimester, not applicable or unspecified (principal); Z37.0 Single live birth; O99.344 Other mental disorders complicating childbirth; F41.1 Generalized anxiety disorder; Z3A.38 38 weeks gestation of pregnancy; O70.0 First degree perineal laceration during delivery; O69.81X0 Labor and delivery complicated by cord around neck, without compression, not applicable or unspecified
CPT/HCPCS: 36415; 81001; 85025; 99213

== ENCOUNTER 2019-01-26 08:00 | Outpatient (CLI) | payer MEDICAID, OTHER | END 2019-01-26 23:59 | disposition home or self-care (01) | LOC: LAB.R 08:00 | PROVIDERS: ATTEND Nurse Practitioner Obstetrics & Gynecology | DX: N76.0 Acute vaginitis (principal) | CPT/HCPCS: 87480; 87510; 87660 ==

== ENCOUNTER 2019-10-31 09:00 | Outpatient (CLI) | payer BC, OTHER ==
[2019-10-31 20:54] LABS: CANDIDA GROUP DNA POSITIVE (NEGATIVE); CANDIDA KRUSEI DNA NEGATIVE (NEGATIVE); TRICHOMONAS VAGINALIS DNA NEGATIVE (NEGATIVE)
== END 2019-10-31 23:59 | disposition home or self-care (01) ==
LOC: LAB.R 09:00
PROVIDERS: ATTEND Nurse Practitioner Obstetrics & Gynecology
DX: N76.0 Acute vaginitis (principal)
CPT/HCPCS: 87661; 87801

== ENCOUNTER 2020-10-08 13:31 | Outpatient (CLI) | payer OTHER | END 2020-10-08 13:32 | disposition home or self-care (01) | LOC: LAB.S 13:31 | PROVIDERS: ATTEND Physician Assistant Medical | DX: N93.9 Abnormal uterine and vaginal bleeding, unspecified (principal) | CPT/HCPCS: 36415; 84702 ==

== ENCOUNTER 2020-10-20 08:00 | Outpatient (CLI) | payer OTHER ==
[2020-10-20 16:00] LABS: MUDS CUTOFF CONCENTRATIONS CUTOFF CONC BELOW:
[2020-10-20 16:49] LABS: BILIRUBIN,URINE NEGATIVE (NEGATIVE); CLARITY,URINE CLEAR (CLEAR); GLUCOSE, URINE (UA) NEGATIVE (NEGATIVE); KETONES,URINE (UA) NEGATIVE (NEGATIVE); LEUKOCYTE ESTERASE, URINE NEGATIVE (NEGATIVE); NITRITE,URINE NEGATIVE (NEGATIVE); OCCULT BLOOD,URINE NEGATIVE (NEGATIVE); PROTEIN,URINE NEGATIVE (NEGATIVE); UROBILINOGEN,URINE 0.2 (NORMAL) E.U./dL (NORMAL)
[2020-10-20 16:51] LABS: AMPHETAMINE SCREEN,URINE NEGATIVE (NEGATIVE); BENZODIAZEPINES SCREEN, URINE NEGATIVE (NEGATIVE); COCAINE SCREEN URINE NEGATIVE (NEGATIVE); METHADONE SCREEN, URINE NEGATIVE (NEGATIVE); METHAMPHETAMINES SCREEN, URINE NEGATIVE (NEGATIVE); OPIATE SCREEN, URINE NEGATIVE (NEGATIVE); OXYCODONE SCREEN, URINE NEGATIVE (NEGATIVE); PROPOXYPHENE SCREEN, URINE NEGATIVE (NEGATIVE); TRICYCLIC ANTIDEPRESSANT,URINE NEGATIVE (NEGATIVE)
[2020-10-20 17:13] LABS: BACTERIA,URINE None Seen /HPF (None Seen); RBC,URINE None Seen /HPF (0-5); SQUAMOUS EPITHELIAL CELL,UR FEW Squamous (<= Few)
== END 2020-10-20 23:59 | disposition home or self-care (01) ==
LOC: LAB.R 08:00
PROVIDERS: ATTEND Advanced Practice Midwife
DX: Z32.01 Encounter for pregnancy test, result positive (principal)
CPT/HCPCS: 80306; 81001; 87086

== ENCOUNTER 2020-10-22 07:23 | Outpatient (CLI) | payer OTHER ==
[2020-10-22 16:27] LABS: BASOPHILS % (AUTO) 0.4 %; EOSINOPHILS # (AUTO) 0.2 10^3/uL (0.0-0.7); EOSINOPHILS % (AUTO) 1.6 %; HGB - HEMOGLOBIN 13.2 g/dL (12.0-16.0); LYMPHOCYTES # (AUTO) 2.2 10^3/uL (1.5-3.5); LYMPHOCYTES % (AUTO) 22.4 %; MEAN CORPUSCULAR HEMOGLOBIN 28.9 pg (27.0-31.0); MEAN CORPUSCULAR HGB CONC 32.8 g/dL (32.0-36.0); MEAN CORPUSCULAR VOLUME 88.2 fL (81.0-99.0); MEAN PLATELET VOLUME 9.2 fL (7.9-10.8); MONOCYTES # (AUTO) 0.6 10^3/uL (0.0-1.0); MONOCYTES % (AUTO) 6.1 %; NEUTROPHILS # (AUTO) 6.9 10^3/uL (1.5-6.6); PLT - PLATELET COUNT 263 10^3/uL (130-450); RED BLOOD COUNT 4.57 10^6/uL (4.20-5.40); RED CELL DISTRIBUTION WIDTH 13.3 % (12.0-15.0)
[2020-10-23 11:52] LABS: HIV AG/AB 4TH GEN NON-REACTIVE (NON-REACTIVE)
[2020-10-23 12:37] LABS: HEPATITIS B SURFACE ANTIGEN NON-REACTIVE (NON-REACTIVE)
[2020-10-23 12:38] LABS: HEPATITIS C ANTIBODY NON-REACTIVE (NON-REACTIVE)
[2020-10-23 20:07] LABS: FREE T3 4.17 pg/mL (2.5-3.9)
[2020-10-23 20:09] LABS: FREE T4 (FREE THYROXINE) 0.82 ng/dL (0.58-1.64)
== END 2020-10-22 07:24 | disposition home or self-care (01) ==
LOC: LAB.S 07:23
PROVIDERS: ATTEND Advanced Practice Midwife
DX: Z32.01 Encounter for pregnancy test, result positive (principal); R53.83 Other fatigue; Z36.89 Encounter for other specified antenatal screening; O46.90 Antepartum hemorrhage, unspecified, unspecified trimester; Z3A.00 Weeks of gestation of pregnancy not specified; O26.819 Pregnancy related exhaustion and fatigue, unspecified trimester
CPT/HCPCS: 36415; 81599; 84439; 84443; 84481; 85025; 86762; 86787; 86803; 86850; 86900; 86901; 87340; 87389

== ENCOUNTER 2020-10-23 10:21 | Outpatient (CLI) | payer OTHER | END 2020-10-23 10:22 | disposition home or self-care (01) | LOC: LAB.S 10:21 | PROVIDERS: ATTEND Physician Assistant Medical | DX: Z53.9 Procedure and treatment not carried out, unspecified reason (principal) ==

== ENCOUNTER 2020-11-08 16:25 | Outpatient (CLI) | payer OTHER ==
--- NOTE | 2020-11-09 11:46 | Ultrasound Report ---
PROCEDURE: OB First Trimester INDICATIONS: TEST POSITIVE OUTSIDE/PRIOR DATING DATA: Last menstrual period (LMP): 08/28/2020. LMP-based estimated date of delivery (RODOLFO): 06/04/2021. First dating scan (date and location): 11/08/2020. Estimated date of delivery (RODOLFO) from first dating scan: 06/12/2021. TECHNIQUE: Real-time scanning was performed of the fetus and maternal pelvic organs, with image documentation. COMPARISON: None FINDINGS: Embryo: Single intrauterine gestational sac is seen with fetus and yolk sac seen. heart rate i s 173 bpm. Dighton-rump length measures 2.4 cm. Estimated gestational age is 9 weeks, 1 day. Measurement variability in dating: +/- 4 weeks by LMP, +/- 7 days by mean sac diameter (use before 6 weeks gestation if crown-rump length not able to be measured), +/- 5 days by crown-rump length (6-12 weeks gestation). Maternal organs: Ovaries are visualized and are within normal limits.. Limited images through the k idneys demonstrate no hydronephrosis. IMPRESSION: Single live intrauterine with fetus and normal appearing yolk sac seen. heart rate is 173 bpm. Estimated gestational age based on current study is 9 weeks, 1 day. Reviewed by: Mayur Rene MD on 11/09/2020 11:45 AM PST Approved by: Mayur Rene MD on 11/09/2020 11:45 AM PST Station ID: [id number]
== END 2020-11-08 16:26 | disposition home or self-care (01) ==
LOC: DI 16:25
PROVIDERS: ATTEND Advanced Practice Midwife
DX: Z32.01 Encounter for pregnancy test, result positive (principal)

== ENCOUNTER 2020-11-09 13:50 | Outpatient (CLI) | payer OTHER | END 2020-11-09 13:51 | disposition EMS.NT | LOC: EMS 13:50 | PROVIDERS: ATTEND Surgery | DX: O99.891 Other specified diseases and conditions complicating pregnancy (principal); R55 Syncope and collapse; Z3A.10 10 weeks gestation of pregnancy ==

== ENCOUNTER 2020-11-12 07:00 | Outpatient (CLI) | payer OTHER ==
[2020-11-12 19:17] LABS: TRICHOMONAS VAGINALIS DNA NEGATIVE (NEGATIVE)
== END 2020-11-12 23:59 | disposition home or self-care (01) ==
LOC: LAB.R 07:00
PROVIDERS: ATTEND Nurse Practitioner Obstetrics & Gynecology
DX: Z11.3 Encounter for screening for infections with a predominantly sexual mode of transmission (principal)
CPT/HCPCS: 87491; 87591; 87661

== ENCOUNTER 2021-01-26 10:12 | Outpatient (CLI) | payer MEDICAID, OTHER ==
--- NOTE | 2021-01-26 14:34 | Ultrasound Report ---
PROCEDURE: OB Detailed Eval INDICATIONS: SUPERVISION OF OUTSIDE/PRIOR DATING DATA: Last menstrual period (LMP): 08/28/2020. LMP-based estimated date of delivery (RODOLFO): 06/04/2021. First dating scan (date and location): 11/08/2020. Estimated date of delivery (RODOLFO) from first dating scan: 06/12/2021. TECHNIQUE: Real-time scanning was performed of the fetus, with image documentation and biometric measurements. Endovaginal scanning: Not performed COMPARISON: 11/08/2020. FINDINGS: General: A single living intrauterine gestation is present. Presentation: Variable Placenta: Placental position is posterior, without previa. Amniotic fluid index: 14.8 cm, 56th percentile for gestational age. Largest pocket 4.05 cm. heart rate: 145 beats per minute. Maternal cervical canal: 3.7 cm long; normal length is 2.5 cm or more. biometrics: Biparietal diameter: 4.7 cm, 20 weeks 2 days Head circumference: 17.4 cm, 20 weeks 0 days Abdominal circumference: 14.7 cm, 20 weeks 0 days Femur length: 3.2 cm, 20 weeks 0 days Estimated gestational age from initial scan: 20 weeks 3 days. Composite gestational age from present scan: 20 weeks 0 days Estimated weight and percentile: 325 g, 23rd percentile. Measurement variability in biometric dating: +/- 10 days from 12-20 weeks gestation, +/- 2 weeks from 20-30 weeks gestation, +/- 3 weeks at 30 weeks gestation or later. Anatomic survey: Neuro: Ventricles are normal at less than 10 mm. Cisterna magna is normal at 3-11 mm. Cerebellum i s normal in size and morphology. Nuchal skin fold: Normal at less than 6 mm between 14 and 20 weeks gestational age. Face: Nose and lips, facial profile are normal. Spine: No evidence for spina bifida. Heart: 4-chambered heart is present, with normal ventricular outflow tracts. Diaphragm: Diaphragm is intact. Stomach: Left-sided stomach is present. Kidneys: No hydronephrosis. Normal is less than 5 mm in 2nd trimester, less than 7 mm in 3rd trimester. Cord: 3 vessel cord has orthotopic insertion. Bladder: Normal in size. Extremities: All 4 extremities are visualized. IMPRESSION: Single living intrauterine fetus in variable presentation. Estimated weight at the 23rd percent ile Normal anatomic survey Normal JESS Reviewed by: Guy Chin MD on 01/26/2021 2:33 PM PST Approved by: Guy Chin MD on 01/26/2021 2:33 PM PST Station ID: [id number]
== END 2021-01-26 10:13 | disposition home or self-care (01) ==
LOC: DI 10:12
PROVIDERS: ATTEND Nurse Practitioner Obstetrics & Gynecology
DX: Z34.92 Encounter for supervision of normal pregnancy, unspecified, second trimester (principal)

== ENCOUNTER 2021-02-27 08:36 | Outpatient (CLI) | payer MEDICAID ==
[2021-02-27 09:32] VITALS: BP 113/67
--- NOTE | 2021-02-27 17:20 | PROVIDER PROGRESS NOTE ---
- HPI Chief Complaint: Decreased movement Current : Current EDU 06/12/21 Gestation 25 Weeks and 0 Days 2 Para 1 Vital Signs Temperature 37.1 C 02/27/21 09:25 Heart Rate 76 02/27/21 09:25 Respiratory Rate 16 02/27/21 09:25 Blood Pressure 113/67 02/27/21 09:25 O2 Saturation 98 02/27/21 09:25 Temperature 37.1 C 02/27/21 09:25 Heart Rate 76 02/27/21 09:25 Respiratory Rate 16 02/27/21 09:25 Blood Pressure 113/67 02/27/21 09:25 O2 Saturation 98 02/27/21 09:25 - Procedures OB Procedure Performed: NST Diagnosis/Indication for NST: Decreased movement NST Procedure: NST Procedure Start Date 02/27/21 Start Time 08:45 Stop Time 09:05 Vibroacoustic Stimulation Used No Patient States Movement No: not since last night - Plan Plan: Patient evaluated face to face [place] is a [id number] @ 25.0wks gestation who presents to [facility] with complaints of decreased movement. She states she was feeling nauseous last night due to restarting her Lexapro and then work up in the middle of the night and was unable to feel her baby move which is abnormal as she moves all the time. She states she was able to fall back asleep but then after her normal morning routine when she normally would have felt her baby move several times she has not felt any movement at all. She states when she arrived at [facility] triage room and immediately after she sat down to be placed on the monitors then she noted significant movement. She presents today with her partner Lupillo. O: NST performed 02/27/2021 NST read 02/27/2021 NST meets criteria for reactivity: FHR baseline 130, moderate variability, + accels (10 x 10 per gestational age), no decels A: 25yo @ 25.0wks gestation Decreased movement P: Pt feels very reassured and is feeling consistent movement at this time. Pt released home with precautions. She verbalized understanding and agrees to above plan. She denies further questions or concerns at this time.
== END 2021-02-27 09:40 | disposition home or self-care (01) ==
LOC: WFO 08:36 → FBP 08:39 → WFO 09:20
PROVIDERS: ATTEND Nurse Practitioner Obstetrics & Gynecology
DX: O36.8120 Decreased fetal movements, second trimester, not applicable or unspecified (principal); Z3A.25 25 weeks gestation of pregnancy
CPT/HCPCS: 99212

== ENCOUNTER 2021-03-11 07:29 | Outpatient (CLI) | payer MEDICAID ==
[2021-03-11 14:32] LABS: HCT - HEMATOCRIT 36.3 % (37.0-47.0); HGB - HEMOGLOBIN 11.5 g/dL (12.0-16.0); MEAN CORPUSCULAR HEMOGLOBIN 28.7 pg (27.0-31.0); MEAN CORPUSCULAR HGB CONC 31.7 g/dL (32.0-36.0); MEAN CORPUSCULAR VOLUME 90.5 fL (81.0-99.0); MEAN PLATELET VOLUME 8.5 fL (7.9-10.8); RED BLOOD COUNT 4.01 10^6/uL (4.20-5.40); RED CELL DISTRIBUTION WIDTH 13.1 % (12.0-15.0); WHITE BLOOD COUNT 12.8 x10^3/uL (4.8-10.8)
== END 2021-03-11 07:30 | disposition home or self-care (01) ==
LOC: LAB.S 07:29
PROVIDERS: ATTEND Advanced Practice Midwife
DX: Z34.90 Encounter for supervision of normal pregnancy, unspecified, unspecified trimester (principal)
CPT/HCPCS: 36415; 82950; 85025; 85027

== ENCOUNTER 2021-05-19 08:00 | Outpatient (CLI) | payer MEDICAID | END 2021-05-19 23:59 | disposition home or self-care (01) | LOC: LAB.WC 08:00 | PROVIDERS: ATTEND Nurse Practitioner Obstetrics & Gynecology | DX: Z36.85 Encounter for antenatal screening for Streptococcus B (principal) | CPT/HCPCS: 87797 ==

== ENCOUNTER 2021-06-11 15:00 | Inpatient (IN) | payer MEDICAID ==
[2021-06-11] MEDS ORDERED: OXYTOCIN 10 UNIT/ML VIAL IM PRN (16:03)
[2021-06-11] MEDS ORDERED: SODIUM CHLORIDE FLUSH 0.9% 10 ML SYRINGE IVP PRN (16:03)
[2021-06-11] MEDS ORDERED: OXYTOCIN/SODIUM CHLORIDE 500 ML IV PRN (16:03)
[2021-06-11] MEDS ORDERED: miSOPROStoL 200 MCG TABLET BC PRN (16:03)
[2021-06-11] MEDS ORDERED: CARBOPROST TROMETHAMINE 250 MCG/ML AMP IM PRN (16:03)
[2021-06-11] MEDS ORDERED: METHYLERGONOVINE 0.2 MG/ML VIAL IM PRN (16:03)
[2021-06-11] MEDS ORDERED: LIDOCAINE-MPF 1% 30 ML VIAL ID PRN (16:03)
[2021-06-11] MEDS ORDERED: TRANEXAMIC ACID IN NACL 1,000 MG/100 ML BAG IV PRN (16:03)
--- NOTE | 2021-06-11 16:03 | PROVIDER PROGRESS NOTE ---
- HPI Chief Complaint: Labor Check Current : Current EDU 06/12/21 Gestation 39 Weeks and 6 Days 2 Para 1 Vital Signs Temperature 36.7 C 06/11/21 15:14 Heart Rate 92 06/11/21 15:14 Respiratory Rate 17 06/11/21 15:14 Blood Pressure 133/69 H 06/11/21 15:14 O2 Saturation 99 06/11/21 15:14 Temperature 36.7 C 06/11/21 15:14 Heart Rate 92 06/11/21 15:14 Respiratory Rate 17 06/11/21 15:14 Blood Pressure 133/69 H 06/11/21 15:14 O2 Saturation 99 06/11/21 15:14 - Procedures OB Procedure Performed: NST NST Procedure: NST Procedure Start Time 08:45 Stop Time 09:05 Service Date of procedure: 06/11/21 - Plan Plan: S: Elva presents to [facility] with c/o contractions which have increased in frequency and intensity since yesterday morning. She states she has stretches of every 6-8 minutes that are painful but then they go away. She states this afternoon the pain got significant enough that she felt she should come in and be evaluated. She denies vaginal bleeding or leakage of fluid. She reports +FM. She is supported by her partner Lupillo. O: NST performed 06/11/2021 NST read 06/11/2021 NST reactive. FHR baseline 145, moderate variability, + accels, no decels Contractions palpate strong every 8 minutes with soft resting tone. SVE 4-5/80/0, Vertex. intact membranes A: 26yo @ 39.6wks gestation by 9.1wk U/S not c/w LMP dating Early labor GBS negative FHR Category I P: Reviewed management options to include repeat SVE in 2 hours and discharge home if unchanged, vs admit for labor augmentation via AROM. Pt elects to admit and augment labor. Pt verbalized understanding and agrees to above plan. She denies further questions or concerns at this time. FINAL DIAGNOSIS: Early labor
--- NOTE | 2021-06-11 16:15 | HISTORY & PHYSICAL EXAMINATION ---
Admit History - Visit Reason Visit Reason: Contractions - : 2 Parity: 1 Premature: 0 Ectopic: 0 : 0 Care: positive: [facility] Risk/History: positive: None Complications This : positive: None Smoking Status: Never smoker - Mother's Labs Mother's Blood Type: positive: A Mother's RH: positive: Positive GBS: positive: Group B Step Negative Rubella Status: positive: Immune Meds/Allgy - Home Medications Home Medications: Ambulatory Orders Medication Instructions Recorded Confirmed No122/Iron/Folic Acid 01/25/18 [ Multi Tablet] cephALEXin [Keflex] 500 mg PO Q6H #20 capsule 01/25/18 - Allergies Allergies/Adverse Reactions: Allergies Allergy/AdvReac Type Severity Reaction Status Date / Time No Known Drug Allergies Allergy Verified 01/25/18 08:11 Review of Systems - Constitutional Constitutional: denies: Fatigue, Fever, Chills, Malaise - Eyes Eyes: denies: Blurred vision, Spots in vision, Dipolpia - Cardiovascular Cariovascular: denies: Irregular heart rate, Chest pain, Edema - Respiratory Respiratory: denies: Cough, Wheezing, SOB at rest - Gastrointestinal Gastrointestinal: denies: Constipation, Diarrhea, Change in bowel habits - Musculoskeletal Musculoskeletal: reports: Back pain - Integumentary Integumentary: denies: Rash, Pruritis - Neurological Neurological: denies: Headache Physical - Abdominal Exam Vital Signs: Temp Pulse Resp BP Pulse Ox 36.7 C 92 17 133/69 H 99 06/11/21 15:14 06/11/21 15:14 06/11/21 15:14 06/11/21 15:14 06/11/21 15:14 Contraction Frequency (min/apart): 6-8 Contraction Intensity: positive: Moderate Uterine Resting Tone: positive: Soft - Monitoring Heart Rate Baseline: 145 Strip Review: positive: Category I - Presentation Presentation: positive: Vertex - Vaginal Exam Membranes: positive: Membranes intact Dilation (in cm): 4-5 Effacement (%): 80 Station: positive: 0 - Speculum Exam Speculum Exam Performed: positive: No Plan for Labor - Plan For Labor I expect patient to be DC'd or transferred within 96 hours.: Yes Plan for Labor: Elva presents today with complaints of contractions that have increased in frequency and intensity since yesterday morning. She denies vaginal bleeding or leakage of fluid. She reports +FM. She is supported by her partner Lupillo. She has been a patient of [facility] through the duration of her which has remained uncomplicated. She will be admitted to [facility] for augmentation of labor with AROM. Dating criteria: LMP 08/28/2020 Initial ultrasound @ 9.1wks gestation not c/w LMP dating. RODOLFO by 9.1wk U/S Serial exams - agree OB Hx: G1: 09/15/2018, @ 38wks, epidural, Male, [id number] G2: current Medications: PNV; zofran PRN, Reglan PRN, Allergies: NKDA PMHx: anxiety/depression, dysmenorrhea Surgical Hx: none Social Hx: Never smoker, no ETOH or IVDA. 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 Partner Lupillo. Family Hx: Depression - father course: Initial ultrasound 11/08/2020 @ 9.1wks gestation differs from LMP by 7 days. RODOLFO by 9.1wk U/S 06/12/2020. U/S performed by [facility]. A pos/Rubella immune VZV: immune Genetic testing: declined FAS WNL. Posterior placenta, no previa. 3VC. JESS WNL. Size c/w dating (23%tile). Glucola 75 Influenza: received at work this season TDAP 03/23/2021 GBS @ 36.4 - Negative HSV: denies in self or partner Breast pump Rx provided MOD: Anticipate ; Partner Lupillo, Son Fabiano; desires unmedicated delivery (poor experience with last epidural placement) it's a Girl- considering Lauren Mcadams pp contraception: plans for vasectomy pap: 02/15/2018 WNL- pap Physical Exam: Normocephalic, atraumatic Heart RRR w/o M/G/R Lungs CTAB Abdomen gravid, soft, nontender EFW 3400g SVE 4-5/80/-0, Vertex. Intact membranes FHR baseline 145, moderate variability, + accels, no decels Contractions palpate strong every 6-8 minutes with soft resting tone Bilateral LE's trace edema Mood is good. Assessment: 26yo @ 39.6wks gestation by 9.1wk U/S Early labor GBS neg FHR Category I Plan: Admit for augmentation of labor with AROM. Continuous monitoring x 4 hours, then intermittent heart rate ausculation per protocol. Jacuzzi PRN. Nitrous oxide PRN. Anticipate .
--- NOTE | 2021-06-11 16:42 | PROVIDER PROGRESS NOTE ---
Labor Progress Note - Labor Progress Note Labor Progress Note/Additional Text: /+1 AROM at 1536, moderate amount of clear fluid. Pt requests epidural for pain management - will contact anesthesia.
[2021-06-11] MEDS ORDERED: SODIUM CHLORIDE FLUSH 0.9% 10 ML SYRINGE IVP SCH (17:00)
[2021-06-11] MEDS ORDERED: LACTATED RINGERS 1,000 ML IV SCH (17:00)
[2021-06-11] MEDS ORDERED: fentaNYL 100 MCG/2 ML VIAL ONE (17:02)
[2021-06-11] MEDS ORDERED: ROPIVACAINE 0.2% 200 MG/100 ML BAG EP ONE (17:02)
[2021-06-11 17:09] LABS: BASOPHILS # (AUTO) 0.1 10^3/uL (0.0-0.1); BASOPHILS % (AUTO) 0.3 %; EOSINOPHILS % (AUTO) 0.2 %; HCT - HEMATOCRIT 39.1 % (37.0-47.0); LYMPHOCYTES # (AUTO) 2.2 10^3/uL (1.5-3.5); LYMPHOCYTES % (AUTO) 15.4 %; MEAN CORPUSCULAR HEMOGLOBIN 28.9 pg (27.0-31.0); MEAN CORPUSCULAR HGB CONC 33.2 g/dL (32.0-36.0); MEAN CORPUSCULAR VOLUME 86.9 fL (81.0-99.0); MEAN PLATELET VOLUME 8.4 fL (7.9-10.8); MONOCYTES # (AUTO) 0.7 10^3/uL (0.0-1.0); MONOCYTES % (AUTO) 5.1 %; NEUTROPHILS # (AUTO) 11.3 10^3/uL (1.5-6.6); NEUTROPHILS % (AUTO) 78.4 %; PLT - PLATELET COUNT 215 10^3/uL (130-450); RED CELL DISTRIBUTION WIDTH 14.5 % (12.0-15.0); WHITE BLOOD COUNT 14.5 x10^3/uL (4.8-10.8)
--- NOTE | 2021-06-11 17:31 | PROVIDER PROGRESS NOTE ---
Labor Progress Note - Uterine Monitoring Uterine Monitoring Mode: positive: External toco Contraction Frequency (min/apart): 3-4 Contraction Intensity: positive: Strong Uterine Resting Tone: positive: Soft - Monitoring Monitor Mode: positive: External ultrasound Heart Rate Baseline: 140 Heart Rate Variability: positive: Moderate (6-25 bmp) Accelerations: positive: Present, 15x15 Decelerations: positive: None Strip Review: positive: Category I - Vaginal Exam Dilation (in cm): 8 Effacement (%): 100 Station: 1 - Labor Progress Note Labor Progress Note/Additional Text: S: Breathing through contractions but states she is starting to feel comfortable with her epidural in place. She is now coping well. Her partner is supportive at the bedside. O: SVE 8/100/+1, vertex. FHR baseline 140s, moderate variability, + accels, no decels Contractions palpate strong every 3-4 minutes with soft resting tone A; 26yo @ 39.6wks gestation Active labor FHR Category I P: Continue expectant management Anticipate .
--- NOTE | 2021-06-11 17:32 | ANESTHESIA ---
Pre-Anesthesia VS, & Labs - Diagnosis Active labor - Procedure vaginal delivery Vital Signs: Temp Pulse Resp BP Pulse Ox 36.7 C 92 17 133/69 H 99 06/11/21 15:14 06/11/21 15:14 06/11/21 15:14 06/11/21 15:14 06/11/21 15:14 Height: 5 ft 5 in Weight (kg): 59.421 kg Body Mass Index: 21.8 BMI Classification: Healthy weight - NPO Other (Clear liquids) - Is Patient ?: Yes - Lab Results Current Lab Results: Laboratory Tests 06/11/21 17:00: WBC 14.5 H, RBC 4.50, Hgb 13.0, Hct 39.1, MCV 86.9, MCH 28.9, MCHC 33.2, RDW 14.5, Plt Count 215, MPV 8.4, Neut # (Auto) 11.3 H, Lymph # (Auto) 2.2, [place] # (Auto) 0.7, Eos # (Auto) 0.0, Baso # (Auto) 0.1, Absolute Nuc leated RBC 0.00, Nucleated RBC % 0.0 Fish Bones: 06/11/21 17:00 Home Medications and Allergies Active Medications Carboprost Tromethamine (Carboprost Tromethamine 250 Mcg/Ml Amp) 250 mcg IM Q15M PRN PRN Reason: Step 4: Hemorrhage protocol Stop: 06/16/21 16:04 Lactated Ringer's (Lr) 1,000 mls @ 150 mls/hr IV .Q6H40M MARY ELLEN Oxytocin/Sodium Chloride (Pitocin/Sodium Chloride) 500 mls @ 999 mls/hr IV PRN PRN; Protocol PRN Reason: POST- HEMORR PREVENTION Stop: 06/16/21 16:04 Tranexamic Acid (Tranexamic 1,000 Mg/100ml-Nacl) 1,000 mg in 100 mls @ 600 mls/hr IV .ONCE PRN PRN Reason: EBL >1200mL and within 3hr Stop: 06/16/21 16:04 Lidocaine HCl (Lidocaine-Mpf 1% 30 Ml Vial) 30 ml ID .ONCE PRN PRN Reason: PERINEAL REPAIR Stop: 06/16/21 16:04 Methylergonovine Maleate (Methylergonovine 0.2 Mg/Ml Vial) 0.2 mg IM .ONCE PRN PRN Reason: Step 2: Hemorrhage protocol Stop: 06/16/21 16:04 Misoprostol (Misoprostol 200 Mcg Tablet) 800 mcg BC .ONCE PRN PRN Reason: Step 3: Hemorrhage protocol Stop: 06/16/21 16:04 Oxytocin (Oxytocin 10 Unit/Ml Vial) 10 unit IM .ONCE PRN PRN Reason: Step one: If no IV access Stop: 06/16/21 16:04 Sodium Chloride (Sodium Chloride Flush 0.9% 10 Ml Syringe) 10 ml IVP PRN PRN PRN Reason: NEEDED PER PROVIDER ORDERS Sodium Chloride (Sodium Chloride Flush 0.9% 10 Ml Syringe) 10 ml IVP 0100,0900,1700 MARY ELLEN No122/Iron/Folic Acid [ Multi Tablet] 01/25/18 Celexa Allergies/Adverse Reactions: Allergies Allergy/AdvReac Type Severity Reaction Status Date / Time No Known Drug Allergies Allergy Verified 01/25/18 08:11 Anes History & Medical History - Anesthetic History Family history of Anesthesia Complications: Denies Family history of Malignant Hyperthermia: Denies - Medical History Cardiovascular: reports: None Pulmonary: reports: None Gastrointestinal: reports: None Urinary: reports: None Neuro: reports: None Musculoskeletal: reports: None Endocrine/Autoimmune: reports: None Blood Disorders: reports: None Skin: reports: None Smoking Status: Never smoker Psychosocial: reports: Depression History of Cancer?: No - Obstetrical History : 2 Parity: 1 Events: reports: None Complications: reports: None Exam General: Alert, Oriented x3, Cooperative, No acute distress Dental: WNL Mouth Openin Fingerbreadth Neck Mobility: Normal Mallampati classification: II Thyromental Distance: 4-6 cm Plan Anesthesia Type: Epidural (CSE) Consent for Procedure(s) Verified and Reviewed: Yes Code Status: Attempt Resuscitation ASA classification: 2-Mild systemic disease Is this case an emergency?: No
[2021-06-11] MEDS ORDERED: ROPIVACAINE 0.2% 200 MG/100 ML BAG EP PRN (17:33)
[2021-06-11] MEDS ORDERED: ONDANSETRON 4 MG/2 ML VIAL IVP PRN (17:33)
[2021-06-11] MEDS ORDERED: HYDROCORTISONE 1% CREAM 28 GM TUBE PR PRN (18:59)
[2021-06-11] MEDS ORDERED: WITCH HAZEL/GLYCERIN 1 PAD TOP PRN (18:59)
--- NOTE | 2021-06-11 18:59 | DELIVERY NOTE ---
Delivery Note - Labor Labor: positive: Augmented by ARM - Infant Delivery Method Delivery Method: positive: Spontaneous vaginal delivery - Presentation Presentation: positive: Vertex, MAX - left occiput anterior - Nuchal Cord Nuchal Cord: positive: Present, Reduced - Amniotic Fluid Description Amniotic Fluid Description: positive: Clear - Episiotomy Type Episiotomy Type: positive: None - Laceration Laceration: positive: 1st degree, Perineal - Suture Suture Type: positive: Vicryl Suture Size: positive: 3-0 - Delivery Outcome Delivery Outcome: positive: Livebirth - [place] : positive: Placed in direct skin contact with mother, Bulb syringe, Stimulated, Warmed, Doyline used, Warmer used sex: positive: Female - Cord Cord: positive: 3 vessels - Placenta Placenta: positive: Intact, Spontaneous - Estimated Blood Loss Estimated Blood Loss (in cc): 150 - Post Delivery Events Post Delivery Events: positive: No post delivery events - Delivery Comments (Free Text/Narrative) Delivery Comments (Free Text/Narrative): Labor: This 26yo @ 39.6wks getation by 9.1wk U/S not c/w LMP dating presented to [facility] with c/o contractions. SVE 4-5/80/0 and vertex position. FHR pattern demonstrated Category I pattern throughout labor. AROM occurred at 1536 for labor augmentation and was noted to be a moderate amount of clear fluid. Normal labor course. Epidural placed per maternal request. Pt progressed to c/c/+2 @ 1805 with onset of pushing at 1807. : Normal of viable female infant on 06/11/2021 @ 1805. Nuchal cord x 1 was reduced. The was placed on maternal abdomen, stimulated, and dried. Secondary to poor tone, color and cry at 1 minute the umbilical cord was doubly clamped by CNM and cut by FOB. Infant was brought to infant warmer by labor RN and blow by O2 was administered. Apgars 6/9 at 1 and 5 minutes respectively. Pitocin administered via IV for hemostasis. 3VC. Cord blood was obtained. Fundal massage and gentle cord traction applied for active management of the third stage. Placenta delivered spontaneously and intact @ 1823. EBL 150mL. Fourth stage: Uterine fundus firm and there is no excessive bleeding. The perineum, vagina, and cervix were inspected and noted to have a minor 1st degree perineal laceration which was repaired using a 3-[address]-1 needle, in standard fashion and under sterile conditions. Vaginal exam following exam was performed. Tissues well approximated. initiated. Family bonding well. Both mother and baby were left in stable condition.
--- NOTE | 2021-06-11 19:15 | PROVIDER PROGRESS NOTE ---
Subjective - Subjective Subjective: care handed off to Dr. Evans, extension service specialist in charge physician. Objective - Vital Signs/Intake & Output Vital Signs: Vital Signs x48h Temp Pulse Pulse Resp BP Pulse Ox 06/11/21 16:26 37.1 C 72 18 06/11/21 15:14 36.7 C 92 17 133/69 H 99 Intake & Output: Intake & Output 06/08/21 06/09/21 06/10/21 06/11/21 23:59 23:59 23:59 23:59 Output Total 100 Balance -100 - Lab Results Fish Bones: 06/11/21 17:00 Other Labs: Lab Results x24hrs 06/11/21 06/11/21 Range/Units 17:29 17:00 WBC 14.5 H (4.8-10.8) x10^3/uL RBC 4.50 (4.20-5.40) 10^6/uL Hgb 13.0 (12.0-16.0) g/dL Hct 39.1 (37.0-47.0) % MCV 86.9 (81.0-99.0) fL MCH 28.9 (27.0-31.0) pg MCHC 33.2 (32.0-36.0) g/dL RDW 14.5 (12.0-15.0) % Plt Count 215 (130-450) 10^3/uL MPV 8.4 (7.9-10.8) fL Neut # (Auto) 11.3 H (1.5-6.6) 10^3/uL Lymph # (Auto) 2.2 (1.5-3.5) 10^3/uL [place] # (Auto) 0.7 (0.0-1.0) 10^3/uL Eos # (Auto) 0.0 (0.0-0.7) 10^3/uL Baso # (Auto) 0.1 (0.0-0.1) 10^3/uL Absolute Nucleated RBC 0.00 x10^3/uL Nucleated RBC % 0.0 /100WBC Blood Type A POSITIVE Antibody Screen NEGATIVE
[2021-06-11] MEDS ORDERED: DOCUSATE SODIUM 100 MG CAPSULE PO SCH (21:00)
[2021-06-11] MEDS: ACETAMINOPHEN 500 MG TABLET PO SCH (21:06)
[2021-06-11] MEDS: IBUPROFEN 800 MG TABLET PO SCH (21:06)
[2021-06-12] MEDS: ACETAMINOPHEN 500 MG TABLET PO SCH (04:41)
[2021-06-12] MEDS: IBUPROFEN 800 MG TABLET PO SCH ×2 (04:41→10:45)
--- NOTE | 2021-06-12 13:19 | DISCHARGE SUMMARY ---
"Discharge Summary Admit Date: 06/11/21 Discharge Date: 06/12/21 Discharging Provider: Mil Evans DO Code Status: Attempt Resuscitation Condition at Discharge: Good Discharge Disposition: 01 Home, Self Care Discharge Facility Name: [facility] - DIAGNOSES Admission Diagnoses: IUP 39 6/7, Active Labor Discharge Diagnoses with Status of Each Condition: S/P without complications. - HPI History of Present Illness: 26 yo presented with increasing intensity of contractions. Patient was examined and found to be in active labor. Patient had been receiving care at [facility] throughout her . - CONSULTS | PROCEDURES Consultations: None Procedures: Patient had labor augmented with AROM. with repair of first degree lacerations. - HOSPITAL COURSE Hospital Course: Patient was admitted in Active labor. Patient received an epidural for labor. Patient had AROM. Patient progressed in normal fashion and had a of living female . Patient had repair of first degree lacerations. Patient has had uncomplicated period. Patient is tolerating a regular diet. Patient is ambulating and urinating without difficulty. Patient is breast feeding. Patient states pain is controlled with Motrin and Tylenol. - ALLERGIES Allergies/Adverse Reactions: Allergies Allergy/AdvReac Type Severity Reaction Status Date / Time No Known Drug Allergies Allergy Verified 01/25/18 08:11 - MEDICATIONS Home Medications: Ambulatory Orders Medication Instructions Recorded Confirmed No122/Iron/Folic Acid 01/25/18 [ Multi Tablet] cephALEXin [Keflex] 500 mg PO Q6H #20 capsule 01/25/18 - PHYSICAL EXAM AT DISCHARGE General Appearance: positive: No acute distress Eyes Bilateral: positive: Normal inspection Neck: positive: Nml inspection Respiratory: positive: Chest non-tender, Breath sounds nml Cardiovascular: positive: Regular rate & rhythm, No murmur, No gallop Abdomen: positive: Non-tender, Nml bowel sounds, Other (Uterine fundus is below the umbilicus and is firm.) Skin: positive: Color nml Extremities: positive: Nml appearance, No pedal edema Neurologic/Psychiatric: positive: Oriented x3, Mood/affect nml - LABS Result Diagrams: 06/11/21 17:00 - QUALITY (Female Hip Fx Only) Was patient sent home on osteoporosis medication?: No - FOLLOW UP Follow Up: visit in one week and 6 weeks. - TIME SPENT Time Spent in Discharge (Minutes): 30"
[2021-06-12 16:40] VITALS: BP 113/77
[2021-06-13] MEDS ORDERED: PRENATAL VITAMIN TABLET PO SCH (08:00)
== END 2021-06-12 19:50 | disposition home or self-care (01) | DRG 807 ==
LOC: WFO 15:00 → FBP 15:02 → WFO 16:02 → FBP 16:03
PROVIDERS: ADMIT Nurse Practitioner Obstetrics & Gynecology; ATTEND Obstetrics & Gynecology
PROC: 10E0XZZ Delivery of Products of Conception, External Approach (ICD-10-PCS; principal; 2021-06-11)
PROC: 0HQ9XZZ Repair Perineum Skin, External Approach (ICD-10-PCS; 2021-06-11)
DX: O70.0 First degree perineal laceration during delivery (principal); Z37.0 Single live birth; O69.81X0 Labor and delivery complicated by cord around neck, without compression, not applicable or unspecified; Z3A.39 39 weeks gestation of pregnancy
CPT/HCPCS: 36415; 59025; 85025; 86850; 86900; 86901; 99213; A9270; J7120

== ENCOUNTER 2021-11-09 08:00 | Outpatient (CLI) | payer MEDICAID | END 2021-11-09 23:59 | LOC: LAB.S 08:00 | PROVIDERS: ATTEND Emergency Medicine | DX: J06.9 Acute upper respiratory infection, unspecified (principal); Z20.822 Contact with and (suspected) exposure to COVID-19 | CPT/HCPCS: 87070 ==

== ENCOUNTER 2023-08-22 08:00 | Outpatient (CLI) | payer MEDICAID ==
--- NOTE | 2023-08-22 20:23 | XRAY Report ---
PROCEDURE: Chest 2 View X-Ray INDICATIONS: PNEUMONIA TECHNIQUE: 2 views of the chest were obtained. COMPARISON: None. FINDINGS: Surgical changes and devices: None. Lungs and pleura: No pleural effusions or pneumothorax. Lungs are clear. Mediastinum: Mediastinal contours appear normal. Heart size is normal. Bones and chest wall: No suspicious bony lesions. Overlying soft tissues appear unremarkable. IMPRESSION: Normal two-view chest x-ray Reviewed by: Syd Jarrett MD on 08/22/2023 7:22 PM YRIS Approved by: Syd Jarrett MD on 08/22/2023 7:22 PM AKNISHA Station ID: [id number]
== END 2023-08-22 23:59 | disposition home or self-care (01) ==
LOC: DI.S 08:00
PROVIDERS: ATTEND Emergency Medicine
DX: J18.9 Pneumonia, unspecified organism (principal)

== ENCOUNTER 2023-09-01 08:00 | Outpatient (CLI) | payer MEDICAID ==
--- NOTE | 2023-09-01 16:41 | XRAY Report ---
PROCEDURE: Chest 2 View X-Ray INDICATIONS: ACUTE BRONCHITIS TECHNIQUE: 2 views of the chest were acquired. COMPARISON: 09-12 FINDINGS: Surgical changes and devices: None. Lungs and pleura: No pleural effusions or pneumothorax. Lungs are clear. Mediastinum: Mediastinal contours appear normal. Heart size is normal. Bones and chest wall: No suspicious bony lesions. Overlying soft tissues appear unremarkable. IMPRESSION: No acute process. Reviewed by: Lily Huston MD on 09/01/2023 4:39 PM PDT Approved by: Lily Huston MD on 09/01/2023 4:39 PM PDT Station ID: [id number]
== END 2023-09-01 23:59 | disposition home or self-care (01) ==
LOC: DI.S 08:00
PROVIDERS: ATTEND Physician Assistant
DX: J20.9 Acute bronchitis, unspecified (principal)

== ENCOUNTER 2023-10-03 08:39 | Outpatient (CLI) | payer MEDICAID ==
[2023-10-04 04:08] LABS: HEPATITIS B SURFACE AB QUANT 104.2 mIU/mL (Immunity>9.9)
[2023-10-04 09:09] LABS: MEASLES ANTIBODIES IGG 62.3 AU/mL (Immune >16.4); MUMPS ANTIBODIES IGG 91.6 AU/mL (Immune >10.9)
[2023-10-04 10:09] LABS: VARICELLA-ZOSTER AB IGG 141 index (Immune >165)
[2023-10-05 16:08] LABS: VARICELLA-ZOSTER AB IGM <0.91 index (0.00-0.90)
[2023-10-12 10:22] LABS: MEASLES ANTIBODIES IGM Negative
== END 2023-10-03 08:40 | disposition home or self-care (01) ==
LOC: LAB.S 08:39
PROVIDERS: ATTEND Emergency Medicine
DX: Z02.1 Encounter for pre-employment examination (principal)
CPT/HCPCS: 36415; 81599; 86317; 86480; 86735; 86762; 86765; 86787

== ENCOUNTER 2024-07-06 09:41 | Outpatient (CLI) | payer BC | END 2024-07-06 09:42 | disposition home or self-care (01) | LOC: LAB 09:41 | PROVIDERS: ATTEND Registered Nurse | DX: Z02.1 Encounter for pre-employment examination (principal); Z11.1 Encounter for screening for respiratory tuberculosis | CPT/HCPCS: 36415; 81599 ==